=== PATIENT | female | born 1945 | race Caucasian/White ===

== ENCOUNTER 2020-11-06 09:07 | Outpatient (RCR) | payer MEDICARE, SELFPAY ==
--- NOTE | 2020-11-07 08:45 | PC.NURSE ---
Pt called out reporting she could not do the program due to being so overwhelmed from intake. Informed her we will send a list of therapists and clinics in the area to her address. Confirmed she has crisis' information.
== END 2020-11-06 23:55 | disposition home or self-care (01) ==
LOC: HO.PHPA 09:07
PROVIDERS: Visit Provider Psychiatry & Neurology Psychiatry
DX: F33.2 Major depressive disorder, recurrent severe without psychotic features (principal)
CPT/HCPCS: 90791

== ENCOUNTER 2023-07-01 11:01 | Outpatient (AMB) | payer MEDICARE, SELFPAY ==
--- NOTE | 2023-07-01 11:02 | A.OFFVIS_ITS ---
Intake Vital Signs 07/01/23 11:10 Height 5 ft 3.5 in Weight 250 lb BMI 43.6 BP 150/60 H Blood Pressure Location Lt brachial Position Sitting Pulse 71 Pulse Source Pulse Oximeter Pulse Oximetry (%) 96 Oxygen Delivery Method Room Air Intake Visit Reasons: WIP-Kchksys-yumqbvick Intake Note: NPV for tremors Senior Staff Consultant Required: No Allergies amoxicillin Allergy (Severe, Verified 07/01/23 11:03) throat closure HPI HPI Comments History of Present Illness Details 78 y/o female patient presents for new i n-person visit for dizziness, and tremor. Pt reports dizziness and unsteadiness, loss of balance and mild hand tremor. She feels more dizzy when she bend over and easy to loss balance. She falls more frequently lately. It is not spinning sensation. She start using walking stick and walker. Pt reports right ear pounding, pressure and hearing loss. It started about 4-5 years ago. She was evaluated by ENT at that time, but not followed after the one time visit. Pt can't remember what was the diagnose but was told that continue to monitor. Pt also had a vestibular therapy but it did not help. She feels nauseous and has difficulty driving. She is very sensitive for weather, and she feels more dizzy and head pressure when rainy day. She has hx of OG and on CPAP. She reports vivid dream. No REM behavior reported. Pt also had a hip replacement 4 years ago. And has gained 15 lb over the last 3 years ago. She reports constant frontal head pressure and heaviness. She has mild hand tremor, mostly left hand when she carries her plate. Her fine motor function decreased, having difficulty opening the plastic bag. Her hand writing getting smaller. Jose constipation. Pt reports depression, and sees therapist weekly. [facility] Surgical History (Updated 07/01/23 @ 11:08 by Vannessa Lagos CMA) History of hip replacement Social History (Updated 07/01/23 @ 11:10 by Vannessa Lagos CMA) Household Members: None Alcohol intake: never Patient Tobacco Use Status: Current everyday Tobacco user Review of Systems Const All systems reviewed & are unremarkable except as noted in HPI and below Physical Exam Vital Signs: Last Vital Signs Pulse 71 07/01/23 11:10 BP 150/60 H 07/01/23 11:10 Pulse Ox 96 07/01/23 11:10 Oxygen Delivery Method Room Air 07/01/23 11:10 BMI result Body Mass Index 43.6 Const General: cooperative Nutritional Appearance: obese Orientation/consciousness: patient oriented x3 Neck Neck: Yes full ROM and Yes supple Resp Effort & Inspection: normal respiratory effort and able to speak in complete sentences Neuro General: patient oriented x3 Cranial nerves: Yes Bilaterally intact EOM present, Yes Normal facial strength present, Yes Midline tongue present, Yes Symmetric palate elevation present, Yes Ability to bilaterally rotate head present and Yes Ability to bilaterally elevate shoulders present Cognition (Neuro): normal cognition Gait exam (Neuro): Antalgic gait present Motor exam (neuro): 5/5 motor strength present throughout, Pronator motor function not present, Normal motor muscle tone present throughout and Tremors during motor activity present (minimal left hand tremor, posturing and action. ) Psych Appearance: grossly normal Mental Status: mental status grossly normal Affect: normal affect Attitude: cooperative Assessment & Plan Assessment & Plan (1) Loss of balance: Code(s): R26.89 - Other abnormalities of gait and mobility (2) Hearing loss associated with syndrome of right ear: Code(s): H91.91 - Unspecified hearing loss, right ear (3) Pressure in head: Code(s): R51.9 - Headache, unspecified (4) Tremor of left hand: Code(s): R25.1 - Tremor, unspecified Plan Refer patient to physical therapy for gait training and bilateral legs strength. Refer patient to occupational therapy for hand tremor and weakness. Advised patient to undergo brain MRI to assess headache, pressure and loss of balance. Continue to follow up with ENT. Orders: Orders PT Evaluation and Treatment 12 Weeks R26.89 - Other abnormalities of gait and mobility OT Evaluation and Treatment 12 Weeks R25.1 - Tremor, unspecified MR head/brain wo con 07/01/23 H91.91 - Unspecified hearing loss, right ear, R 25.1 - Tremor, unspecified, R26.89 - Other abnormalities of gait and mobility, R51.9 - Headache, unspecified Coding Level of Care Code New Pt Level 4 (75249) Diagnoses Loss of balance R26.89 Hearing loss associated with syndrome of right ear H91.91 Pressure in head R51.9 Tremor of left hand R25.1
[2023-07-01 11:10] VITALS: BP 150/60; PULSE 71; O2SAT 96; BMI 43.6
== END 2023-07-01 12:09 | disposition home or self-care (01) ==
PROVIDERS: Visit Provider Nurse Practitioner Family
DX: R26.89 Other abnormalities of gait and mobility (principal); H91.91 Unspecified hearing loss, right ear; R51.9 Headache, unspecified; R25.1 Tremor, unspecified
CPT/HCPCS: 99204

== ENCOUNTER → 2023-07-01 11:01 | Outpatient (BNVA) | payer MEDICARE, SELFPAY | PROVIDERS: Visit Provider Nurse Practitioner Family ==

== ENCOUNTER 2023-08-13 11:09 | Outpatient (REF) | payer MEDICARE, SELFPAY ==
--- NOTE | ~2023-08-13 | MR_ITS ---
MRI OF THE BRAIN WITHOUT IV CONTRAST INDICATION: Head pressure and tremor. COMPARISON: None available. TECHNIQUE: Multiplanar multisequence MR imaging of the brain was obtained without IV contrast. FINDINGS: There is no hydrocephalus, extra-axial surface collection, or herniation. There is mild chronic microangiopathy. The major flow voids at the skull base are preserved. There is no acute infarct on diffusion-weighted imaging. There is no intracranial hemorrhage on the gradient recalled echo acquisition. Punctate focus of chronic hemosiderin staining within the left temporal lobe. Partially empty sella. The cerebellar tonsils are normally positioned. The cerebellum and brainstem are normal. The craniocervical junction is normal. Osseous marrow signal intensity is homogenous. The visualized soft tissues are unremarkable. MR/MR head/brain wo con IMPRESSION: - No acute intracranial findings. - There is mild chronic microangiopathy. - Partially empty sella.
== END 2023-08-13 11:10 | disposition home or self-care (01) ==
LOC: HO.MRI 11:09
PROVIDERS: PCP Nurse Practitioner Adult Health; Visit Provider Nurse Practitioner Family
DX: H91.91 Unspecified hearing loss, right ear (principal); R51.9 Headache, unspecified; R25.1 Tremor, unspecified; R26.89 Other abnormalities of gait and mobility
CPT/HCPCS: 70551

== ENCOUNTER 2024-12-20 11:48 | Outpatient (AMB) | payer MEDICARE, SELFPAY ==
--- NOTE | 2024-12-20 11:57 | MHC.OFFVIS ---
Vital Signs 12/20/24 12:00 Height 5 ft 3 in Weight 258 lb BMI 45.7 BP 178/84 H Blood Pressure Location Lt brachial Position Sitting Respiration 16 Pulse 102 H Pulse Source Pulse Oximeter Pulse Oximetry (%) 91 L Oxygen Delivery Method Room Air Intake Visit Reasons: Chronic low back pain Instrumental Musician Required: No Allergies amoxicillin Allergy (Severe, Verified 12/20/24 12:02) throat closure Sulfa (Sulfonamide Antibiotics) Adverse Reaction (Unknown, Verified 12/20/24 12:02) Unknown Medication List - Last Reconciled 12/20/24 by Kiara Ceballos LPN glipizide ER 15 mg PO DAILY levothyroxine 125 mcg PO DAILY methylphenidate HCl 5 mg PO BID methylphenidate HCl 10 mg PO BID semaglutide (Ozempic) mg subcut tramadol 50 mg PO BID PRN venlafaxine ER 300 mg PO DAILY HPI HPI Chronic low back pain: Details: History of Present Illness The patient is a 79-year-old female presenting with chronic low back pain and right knee pain. Her condition dates back several years, with significant exacerbation following a fall on September 08, 2024. She reports being overweight as a contributing factor to her pain. The lower back pain is described as aching and stabbing and is notably severe in the right gluteal area. The pain around the right knee is a burning sensation, predominantly around the patella, and remains persistent throughout the day at 7 to 8 out of 10 in severity. Factors that provide relief include rest and naps, while weather changes and prolonged standing worsen her symptoms. Despite her persistent pain, she manages daily activities with difficulty and uses a walker for additional support. Pharmacologic interventions such as tramadol, ibuprofen, and topical applications provide some relief but have not resolved her symptoms. She has not had any recent imaging studies or engaged in physical therapy to address her pain. Due to her limitations and impact on daily living, she is open to an MRI and further interventions if necessary. Pain Description - Location: Lower back and right knee - Onset: Chronic for many years, exacerbated by a fall on September 08, 2024 - Quality: Aching and stabbing in the lower back; burning in the right knee around the patella - Severity: 7 to 8 out of 10 throughout the day - Exacerbating Factors: Weather changes, physical activity, prolonged standing and walking - Relieving Factors: Rest and naps - Interference with Activities: Significant difficulty with household tasks, shopping, sleeping; relies on a walker or shopping cart for support Physical Exam - Appears afebrile. - Alert and oriented. - Mood and affect appropriate. - Follows and participates in conversation appropriately. - Respiratory effort is unlabored. - Able to transition from sit to stand unassisted. - Ambulates with bilaterally normal heel strike and toe off while leaning on a walker. Pain Management - Affect: Pain significantly impacts daily activities and sleep quality. - Analgesia: Current regimen includes tramadol 15 mg on occasion, ibuprofen, hot packs, and lidocaine patches with moderate relief. Pain severity reported as 7 to 8 out of 10. - Adverse Effects: None reported from current pain medication use. - Activities of Daily Living: Difficulty performing senior electrical controls engineer, unable to stand for long periods, reduced mobility, and reliance on a walker. - Aberrant Drug Related Behaviors: No aberrant behaviors noted. [facility] Surgical History (Updated 07/01/23 @ 11:08 by Vannessa Lagos CMA) History of hip replacement Social History (Updated 07/01/23 @ 11:10 by Vannessa Lagos CMA) Household Members: None Alcohol intake: never Patient Tobacco Use Status: Current everyday Tobacco user Physical Exam Vital Signs: Last Vital Signs Pulse 102 H 12/20/24 12:00 Resp 16 12/20/24 12:00 BP 178/84 H 12/20/24 12:00 Pulse Ox 91 L 12/20/24 12:00 Oxygen Delivery Method Room Air 12/20/24 12:00 BMI result Body Mass Index 45.7 Assessment & Plan Assessment & Plan (1) Spinal stenosis, lumbar region with neurogenic claudication: Code(s): M48.062 - Spinal stenosis, lumbar region with neurogenic claudication Category: Medical Plan Plan I will order an MRI of the patient's lumbar spine to investigate potential contributing factors to her chronic low back pain, such as spinal stenosis. Depending on the results, we will discuss the feasibility of surgical options at the next appointment. I recommend the patient start physical therapy to improve functionality and manage pain. An interest in pain-relieving injections was noted and to be discussed post-imaging if indicated. I advised the patient to schedule a follow-up appointment after the MRI to determine the next steps in her care. Weight management continues to be an ongoing consideration to alleviate pressure on her joints. Patient was informed and verbally consented to the use of an ambient scribe for clinic note documentation during this visit. Discussion Notes I discussed with the patient the importance of obtaining an MRI to gain insight into her chronic low back pain, especially considering the history of falls and potential spinal issues. I suggested that surgical intervention might be contemplated based on the MRI findings, particularly if severe spinal stenosis is present. The patient expressed openness to explore injection therapies as an alternative. I explained the benefits and potential risks of each approach, including the non-invasive nature of injections versus possible surgical interventions. We discussed the importance of physical therapy in managing her condition and enhancing mobility, and she is amenable to this plan. A follow-up visit after obtaining the MRI will provide more information for tailored treatment planning. Patient Instructions - Schedule and complete the lumbar spine MRI as soon as possible. - Begin physical therapy to help improve function and manage pain. - Use prescribed medications as needed for pain management. - Await a phone call from the radiology department to schedule your MRI. - Once the MRI is scheduled, call my office to set up a follow-up appointment approximately one week after the MRI is performed. - Monitor any changes in pain severity and inform the office if pain becomes unmanageable. - Continue efforts at weight management to help reduce joint stress. - Contact my office with any questions or new symptoms. Orders: Orders MR lumbar spine wo con Today M48.062 - Spinal stenosis, lumbar region with neurogenic claudication Coding Level of Care Code New Pt Level 4 (94125) Diagnoses Spinal stenosis, lumbar region with neurogenic claudication M48.062
[2024-12-20 12:00] VITALS: BP 178/84; PULSE 102; RESP 16; O2SAT 91; BMI 45.7
--- OUTSIDE RECORDS SUMMARY | 2024-12-20 13:50 | XMS_ITS | Encounter Summary ---
Author Organization 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 Not on mckenzie e 01/04/2023 Are you concerned about learning? Not on file 01/04/2023 No 01/04/2023 No 01/04/2023 Digital Access Answer Date Recorded No 02/02/2023 No 02/02/2023 Reliable internet access at home? Not on file 02/02/2023 Device with a working camera? Not on file Sex and Gender Information Value Date Recorded Sex Assigned at Female 09/01/2019 11:52 AM EST Gender Identity Female 09/01/2019 11:52 AM EST Sexual Orientation Not on file documented as of this encounter Plan of Treatment Not on file documented as of this encounter Visit Diagnoses Diagnosis Sensorineural hearing loss, unilateral, right ear, with restricted hearing on the contralateral side- Primary Otalgia of right ear Arthralgia of right temporomandibular joint documented in this encounter Care Teams Machine Setup Operator Relationship Specialty Start Date End Date Adriana Weeks NP [address] [place] [address] PCP - General Family Medicine 10/13/17 documented as of this encounter Additional Source Comments The information contained in this document represents components of the legal health record. It is not the complete legal health record.[facility]
--- OUTSIDE RECORDS SUMMARY | 2024-12-20 13:50 | XMS_ITS | Encounter Summary ---
Author Organization [facility] Address [address] [place] [address] Phone Care Team Providers Care Certified Shorthand Reporter Name Role Phone Adriana Weeks NP Primary Care Provider + [phone] Reason for Referral * Physical Therapy (Routine) - Closed Specialty Diagnoses / Procedures Referred By Charanjit hooker Referred To Contact Physical Therapy Diagnoses Nocturia Cali Sims MD [address] [place] [address], [address] [place] [id number] Email: [facility] Parent [address] [place] [address] Referral ID Status Reason Start Date Expiration Date Visits Re quested Visits Authorized [id number] Closed 09/24/2018 09/07/2019 99 99 Encounter Details Date Type Department Care Team (Latest Contact Info) Description 09/24/2018 Transcribe Orders [facility] [address] [place] [address] Cali Sims MD [address] [place] [address], [address] [place] [address] [phone] [email or web address] Nocturia (Primary Dx) Social History Tobacco Use Types Packs/Day Years Used Date Smoking Tobacco: Never Assessed Sex and Gender Information Value Date Recorded Sex Assigned at Female 09/01/2019 11:52 AM EST Gender Identity Female 09/01/2019 11:52 AM EST Sexual Orientation Not on file documented as of this encounter Plan of Treatment Scheduled Referrals Name Type Priority Associated Diagnoses Order Schedule Ambulatory referral to [facility] Physical Therapy Outpatient Referral Routine Nocturia Ordered: 09/24/2018 documented as of this encounter Visit Diagnoses Diagnosis Nocturia- Primary documented in this encounter Additional Health Concerns Infection Onset Date Last Indicated Resolved Time CoV-Risk 09/18/2020 09/18/2020 09/28/2020 1:24 AM EST documented as of this encounter Care Teams Certified Shorthand Reporter Relationship Specialty Start Date End Date Adriana Weeks NP [address] [place] [address] [place] [address] PCP - General Family Medicine 10/13/17 documented as of this encounter Additional Source Comments The information contained in this document represents components of the legal health record. It is not the complete legal health record.[facility]
--- OUTSIDE RECORDS SUMMARY | 2024-12-20 13:50 | XMS_ITS ---
Author Organization [facility] Care Team Providers Care Clinical Assoc Name Role Phone , Jeremiah Unavailable Unavailable Yair Mcclellan Unavailable Unavailable Maryt, Sukhdev Unavailable Unavailable Allergies and adverse reactions Code CodeSystem Substance Reaction Severity StartDate Concern Status 156443814 SNOMED CT Sulfa Antibiotics Unknown 12/21/2018 active Lactose Intolerant Unknown 12/21/2018 ac tive 723 RXNORM Amoxicillin Unknown 12/21/2018 active Care Team Name Role Address Phone Organization Dates Jeremiah Maryt PCP [address] [place] [address] (Office): [facility] 12/21/2018 - 01/05/2019 Yair Mcclellan Attending Physician [address] [place] [address] (Office): [facility] 12/21/2018 - 01/05/2019 Sukhdev Darling Attending Physician [address] [place] [address] (Office): [facility] 12/21/2018 - 01/05/2019 Mental Status Section Date Assessment Total Score Description 01/05/2019 BIMS 15 cognitively int act CAM 0 No delirium ind icated PHQ-9 00 01/02/2019 BIMS 14 cognitively int act CAM 0 No delirium ind icated PHQ-9 00 Problems Problem # Description Date of onset Resolved Date Code CodeSystem Concern Status 1 AFTERCARE FOLLOWING JOINT REPLACEMENT SURGERY 12/21/[address] active 2 ATTENTION-DEFICIT HYPERACTIVITY DISORDER, COMBINED TYPE 12/21/[address] active 3 BIPOLAR DISORDER, UNSPECIFIED 12/21/[address] active 4 ENCOUNTER FOR OTHER ORTHOPEDIC AFTERCARE 12/21/[address] active 5 HYPOTHYROIDISM, UNSPECIFIED 12/21/[address] active 6 IRON DEFICIENCY ANEMIA, UNSPECIFIED 12/21/[address] active 7 MUSCLE WEAKNESS (GENERALIZED) 12/21/[address] active 8 OBSTRUCTIVE SLEEP APNEA (ADULT) (PEDIATRIC) 12/21/[address] active 9 PAIN IN LEFT HIP 12/21/[address] a ctive 10 PRESENCE OF LEFT ARTIFICIAL HIP JOINT 12/21/[address] active 11 UNILATERAL PRIMARY OSTEOARTHRITIS, LEFT HIP 12/21/[address] active Reason for Referral No Reasons for Referral Entered Social History Social History Observation Description Start Date End Date Code Code System Current Smoking Status Tobacco smoking consumption unknown 680058116 SNOMED CT Sex Assigned At Female 1945 05754-7 [facility] Vital Signs Code Code System Vitals Name Values and Units Timing Information 29523-7 [facility] Pain Level Value=0.0 01/05/2019 9279-1 LOINC Respiratory Rate Value=18.0 Units=/m in 01/04/2019 8462-4 LOINC Blood Pressure-Diastolic Value=67 Un its=mmHg 01/04/2019 8480-6 LOINC Blood Pressure-Systolic Grtuz=127 Un its=mmHg 01/04/2019 8310-5 LOINC Body Temperature Value=98.1 Units=?? F 01/04/2019 8867-4 LOINC Heart rate Value=89.0 Units=/min 62978-7 LOINC O2 % BldC Oximetry Value=98.0 Units= % 01/04/2019 43836-4 LOINC Weight Nsytu=048.4 Units=Lbs 8302-2 LOINC Height Value=64.0 Units=Inches 12/22/2018
--- OUTSIDE RECORDS SUMMARY | 2024-12-20 13:50 | XMS_ITS | Encounter Summary ---
Author Organization [facility] Address [address] [facility] [address] [place] [address] Phone Care Team Providers Care Ophthalmic Lens Inspector Name Role Phone Adriana Weeks ACID CONDITIONING WORKER Primary Care Provider Encounter Details Date Type Department Care Team (Late st Contact Info) Description 04/28/2018 Ancillary Orders Virtual Department [address] [place] [address] You Pierre, DO [address] [place] [address] [email or web address] Pain in left hip Social History Tobacco Use Types Packs/Day Years Used Date Smoking Tobacco: Never Assessed Sex and Gender Information Value Date Recorded Sex Assigned at Female 09/01/2019 11:52 AM EST Gender Identity Female 09/01/2019 11:52 AM EST Sexual Orientation Not on file documented as of this encounter Plan of Treatment Not on file documented as of this encounter Visit Diagnoses Diagnosis Pain in left hip documented in this encounter Additional Health Concerns Infection Onset Date Last Indicated Resolved Time CoV-Risk 09/18/2020 09/18/2020 09/28/2020 1:24 AM EST documented as of this encounter Care Teams Ophthalmic Lens Inspector Relationship Specialty Start Date End Date Adriana Weeks NP [address] [place] [address] PCP - General Family Medicine 10/13/17 documented as of this encounter Additional Source Comments The information contained in this document represents components of the legal health record. It is not the complete legal health record.[facility]
--- OUTSIDE RECORDS SUMMARY | 2024-12-20 13:51 | XMS_ITS | Encounter Summary ---
Author Organization [facility] Address [facility] [employer] [address] [address] Phone Care Team Providers Care Cigarette Filter Inspector Name Role Phone Adriana Weeks NP Primary Care Provider [phone] Encounter Details Date Type Department Care Team (Latest Contact Info) Description 09/18/2020 Transcribe Orders Virtual Department [address] [place] [address] Cari Cortés NP [address] [place] [address] [email or web address] Fever, unspecified fever cause (Primary Dx); Cough; Stuffy and runny nose; Nonintractable headache, unspecified chronicity pattern, unspecified headache type Social History Tobacco Use Types Packs/Day Years Used Date Smoking Tobacco: Never Assessed Sex and Gender Information Value Date Recorded Sex Assigned at Female 09/01/2019 11:52 AM EST Gender Identity Female 09/01/2019 11:52 AM EST Sexual Orientation Not on file documented as of this encounter Plan of Treatment Not on file documented as of this encounter Results * COVID-19 PCR Order (09/18/2020 11:05 AM EST) COVID Testing Status Specimen received in analyzing lab. [facility] Symptomatic? YES [facility] Other 09/18/2020 11:0 5 AM EST 09/18/2020 12:53 PM EST Provider Not In System PhD BODY FLUIDS A ND STOOLS ORDERABLES Performing Organization Address City/State/[facility] Co de Phone Number [facility] [address] [place] [address] [facility] [address] [place] [address] documented in this encounter Visit Diagnoses Diagnosis Fever, unspecified fever cause- Primary Cough Stuffy and runny nose Other diseases of nasal cavity and sinuses Nonintractable headache, unspecified chronicity pattern, unspecified headache type documented in this encounter Additional Health Concerns Infection Onset Date Last Indicated Resolved Time CoV-Risk 09/18/2020 09/18/2020 09/28/2020 1:2 4 AM EST documented as of this encounter Care Teams Cigarette Filter Inspector Relationship Specialty Start Date End Date Adriana Weeks NP [address] [place] [address] [place] [address] PCP - General Family Medicine 10/13/17 documented as of this encounter Additional Source Comments The information contained in this document represents components of the legal health record. It is not the complete legal health record.[facility]
--- OUTSIDE RECORDS SUMMARY | 2024-12-20 13:51 | XMS_ITS | Encounter Summary ---
Author Organization [facility] Address [address] [facility] [address] [place] [address] Phone Care Team Providers Care Game Engineer Name Role Phone Adriana Weeks TANK CAR LOADER Primary Care Provider [phone] Encounter Details Date Type Department Care Team (Late st Contact Info) Description 01/02/2021 Procedure Pass [facility] Endoscopy Admitting Dept Virtual Department [address] [place] [address] Social History Tobacco Use Types Packs/Day Years Used Date Smoking Tobacco: Never Assessed Sex and Gender Information Value Date Recorded Sex Assigned at Female 09/01/2019 11:52 AM EST Gender Identity Female 09/01/2019 11:52 AM EST Sexual Orientation Not on file documented as of this encounter Plan of Treatment Not on file documented as of this encounter Visit Diagnoses Not on filedocumented in this encounter Care Teams Game Engineer Relationship Specialty Start Date End Date Adriana Weeks, TANK CAR LOADER [address] [place] [address] PCP - General Family Medicine 10/13/17 documented as of this encounter Additional Source Comments The information contained in this document represents components of the legal health record. It is not the complete legal health record.[facility]
--- OUTSIDE RECORDS SUMMARY | 2024-12-20 13:51 | XMS_ITS | Clinical Summary ---
Author Organization [facility] Address [address] [place] [address] Phone Care Team Providers Care Divider Operator Name Role Phone Adriana Weeks NP Primary Care Provider [phone] Allergies Active Allergy Reactions Criticality Noted Date Comments Amoxicillin Hives 01/16/2018 Sulfa (Sulfonamide Antibiotics) Hives 01/06 Medications Medication Sig Dispensed Refills Start Date End Date Status PROAIR HFA 90 mcg/actuation inhaler INHALE 2 PUFF(S) EVERY 4 HOURS BY INHALATION ROUTE FOR 30 DAYS. 11 11/04/2017 Active levothyroxine (SYNTHROID, LEVOTHROID) 112 MCG tablet Take 125 mcg by mouth daily. 0 10/31/2017 Active lithium carbonate 300 MG capsule TAKE 1 CAPSULE(S) EVERY DAY BY ORAL ROUTE. 0 10/31/2017 Active methylphenidate HCl (RITALIN) 10 MG tablet Take 15 mg by mouth. 0 01/04/2018 Acti ve venlafaxine (EFFEXOR-XR) 150 MG 24 hr capsule Take 150 mg by mouth daily. Take 2 caps daily. 1 10/31/2017 Active venlafaxine (EFFEXOR) 37.5 MG tablet Take 37.5 mg by mouth daily. Active glipiZIDE (GLUCOTROL XL) 5 MG 24 hr tablet Take 5 mg by mouth. Take 2 tabs in the morning and one tab at noon with meals. 09/09/2023 Active cholecalciferol, vitamin D3, (VITAMIN D3 ORAL) Take 3,000 Units by mouth daily. Active MULTIVITAMIN ORAL Take by mouth daily. Active pioglitazone (ACTOS) 15 MG tabletIndications: Type 2 diabetes mellitus with hyperglycemia, with long-term current use of insulin Take 1 tablet (15 mg total) by mouth daily. 90 tablet 1 10/08/2023 Active blood-glucose meter,continuous (DEXCOM G7 GUM DIPPER) MiscIndications:Ty pe 2 diabetes mellitus with hyperglycemia, with long-term current use of insulin by Miscellaneous route as needed. 1 each 10/08/2023 Active blood-glucose sensor (DEXCOM G7 SENSOR) DeviIndications:Ty pe 2 diabetes mellitus with hyperglycemia, with long-term current use of insulin 1 Application by Miscellaneous route Every 10 Days. 3 each 11 10/08/2023 Active BASAGLAR KWIKPEN U-100 INSULIN 100 unit/mL (3 mL) InPn injection penIndications:Typ e 2 diabetes mellitus with hyperglycemia, with long-term current use of insulin Inject 30 Units under the skin nightly at bedtime. 30 mL 1 12/25/2023 Active Active Problems Problem Noted Date Diagnosed Date Type 2 diabetes mellitus wit h hyperglycemia, with long-term current use of insulin 10/08/2023 Assessment & Plan (10/08/2023 12:19 PM EST): Uncontrolled. Hemoglobin A1c reported over 10%. She has elevated fasting glucose and occasional postprandial glucose levels. She should increase the Lantus to 30 units. She will benefit from GLP-1 agonist for weight loss but these medications may not be covered or may be more expensive. I will refer the patient to prescribe a GLP-1 agonist and see if it is doable. He states that this was considered 5 years ago and it was expensive. The cost may have gone down but she is concerned about the adverse effects of the medication. So I propose using pioglitazone which is an insulin mobile home servicer and she has cardiovascular benefits and also cholesterol benefits. She can start with 15 mg daily. But she is also on glipizide 3 tablets a day and she may need to decrease this at least by 1 tablet for now especially since we are increasing the Lantus. So I asked her to decrease the glipizide from 15 mg to 10 mg. I asked her to monitor her glucose levels twice a day always a fasting glucose alternating between lunch, dinner, and bedtime. I will need to obtain a lipid panel repeat the urine microalbumin obtain a comprehensive CBC. As for the blood pressure she states that it is controlled at home but I did inform her that an DO inhibitor or angiotensin receptor rosa will still be beneficial for renal protection because of the microalbuminuria. We can discuss this further on the follow-up visit in approximately 3 months. Type 2 diabetes mellitus wit h diabetic polyneuropathy, with long-term current use of insulin 10/08/2023 Type 2 diabetes mellitus wit h microalbuminuria, with long-term current use of insulin 08/10/2021 Immunizations Name Administration Dates Next Due COVID-19 (Pre-06/30) Moderna Vaccine, mRNA, PF 0 10/31/2020 Influenza High-Dose Trivalent Preservative Free IM 08/02/2019 Influenza Quadrivalent Adjuvanted Preservative F ree IM 06/19/2020 Influenza, Unspecified Formulation 07/01/2008, Pneumococcal conjugate PCV13 01/25/2019 Td, unspecified formulation 09/26/2004 Family History Medical History Relation Comments Stroke Father Diabetes Mother Hyperlipidemia Mother Hypertension Mother Relation Status Comments Father Mother Social History Tobacco Use Types Packs/Day Years [...] AM EST Sexual Orientation Not on file Last Filed Vital Signs Vital Sign Reading Time Taken Comments Blood Pressure 152/76 10/08/2023 11:38 AM EST Pulse 82 10/08/2023 11:38 AM EST Temperature 36.5 ??C (97.7 ??F) 10/08/2023 1 1:38 AM EST Respiratory Rate 16 06/01/2022 5:00 PM EDT Oxygen Saturation 96% 10/08/2023 11: 38 AM EST Inhaled Oxygen Concentration - - Weight 113.4 kg (250 lb) 10/08/2023 11: 38 AM EST pt reported. refused scale. Height 160.2 cm (5' 3.09 ) 10/08/2023 1 1:38 AM EST Body Mass Index 44.16 10/08/2023 11:38 AM EST Plan of Treatment Health Maintenance Due Date Last Done Comments HEMOGLOBIN A1C 1945 LITHIUM LEVEL 1945 TSH LEVEL 1945 DEPRESSION SCREENING 1957 SMOKING Hx and SMOKELESS TOBACCO SCREENING 1958 HEPATITIS C SCREENING 1963 LIPID PANEL 1963 ZOSTER VACCINES (1 of 2) 1995 OSTEOPOROSIS SCREENING INITIAL (ONE-TIME) 2010 RSV VACCINE (1 - 1-dose 75+ series) 02/13/2020 DIABETIC EYE EXAM 08/10/2021 URINE MICROALBUMIN/CREATININE RATIO 08/10/2021 CREATININE LEVEL 06/01/2023 06/01/2022 BLOOD PRESSURE 04/07/2024 10/08/2023 COVID-19 VACCINE ( season) 2024 07/25/2022, 01/22/2022, 07/09/2021, Additional history exists Adult Td,Tdap Booster 01/15/2028 01/14/2018, 005 PNEUMOCOCCAL VACCINES (50+ years) Completed 01/25/2019, 08/05/2012 HEPATITIS A VACCINES Aged Out No long er eligible based on patient's age to complete this topic HIB VACCINES Aged Out No longer eligi ble based on patient's age to complete this topic MENINGOCOCCAL VACCINES (ACWY) Aged Out No longer eligible based on patient's age to complete this topic Medical Devices Not on file Procedures Procedure Name Priority Date/Time Associated Diagnosis Comments BASIC METABOLIC PANEL STAT 06/01/2022 2:14 PM EDT from Last 3 Months or Most Recently Relevant to Health Maintenance Results * (ABNORMAL) Basic metabolic panel (06/01/2022 2:14 PM EDT) SODIUM 137 133 - 146 mmol/L [facility] CHLORIDE 100 96 - 108 mmol/L [facility] POTASSIUM 4.6 3.3 - 5.1 mmol/L [facility] CO2 22 21 - 35 mmol/L [facility] BUN 21(H) 6 - 19 mg/dL [facility] CREATININE 0.70 0.5 - 1.5 mg/dL [facility] GLUCOSE 179(H) 70 - 99 mg/dL [facility] CALCIUM 9.7 8.4 - 10.3 mg/dL [facility] EGFR 89 >59 mL/min/1.7 3m2 [facility] Comment:Estimated glomerular filtration rate calculated using the CKD-EPI refit equation. ANION GAP 20 10 - 20 mmol/L [facility] Blood 06/01/2022 2:14 PM EDT 06/01/2022 2:23 PM EDT Jose Carlos Houser MD LAB BLOOD ORDERABLES [facility] [address] [place] [address] from Last 3 Months or Most Recently Relevant to Health Maintenance Advance Directives For more information, please contact: [phone] (9AM - 5PM [facility], Friday-Friday) Documents on File Type Date Recorded Patient Contact Worker Lithography Expl raghu DUQUE 06/03/2022 5:00 PM Care Teams Divider Operator Relationship Specialty Start Date End Date Adriana Weeks NP [address] [place] [address] [place] [address] PCP - General Family Medicine 10/13/17 Additional Source Comments The information contained in this document represents components of the legal health record. It is not the complete legal health record.[facility]
== END 2024-12-20 12:25 | disposition home or self-care (01) ==
PROVIDERS: PCP Nurse Practitioner Adult Health; Visit Provider Internal Medicine
DX: M48.062 Spinal stenosis, lumbar region with neurogenic claudication (principal)
CPT/HCPCS: 99204

== ENCOUNTER → 2024-12-20 11:48 | Outpatient (BNVA) | payer MEDICARE, SELFPAY | PROVIDERS: PCP Nurse Practitioner Adult Health; Visit Provider Internal Medicine | DX: M48.062 Spinal stenosis, lumbar region with neurogenic claudication (principal) | CPT/HCPCS: 99202 ==

== ENCOUNTER 2024-12-27 10:24 | Outpatient (REF) | payer MEDICARE, SELFPAY ==
--- NOTE | ~2024-12-27 | MR_ITS ---
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 COMPARISON: None available. TECHNIQUE: MRI of the lumbar spine was obtained using routine sequences without contrast. FINDINGS: There is normal lumbar lordosis. The vertebral heights are normal. There is grade 1 retrolisthesis L1 over L2 and L2 over L3 and grade 1 anterolisthesis L4 over L5.. There is loss of disc height lower dorsal and anterior lumbar spine with disc desiccation changes. At T12-L1 disc level there is minimal bulge without spinal canal stenosis. The neural foramina are patent bilaterally. At L1-2 disc level there is grade 1 retrolisthesis with mild diffuse pseudo disc bulge with mild AP canal stenosis. There is bilateral moderate narrowing of neural foramina from underlying mild facet joint hypertrophy and bulge. At L2-3 disc level there is grade 1 retrolisthesis resulting in diffuse pseudodisc bulge and moderate to significant facet joint and ligament flavum hypertrophy. There is bilateral moderate narrowing of neural foramina. At L3-4 disc level there is severe spinal canal stenosis from combination of broad-based diffuse bulge and significant bilateral facet joint and ligamentum flavum hypertrophy. There is moderate bilateral narrowing of neural foramina. At L4-5 disc level there is severe spinal canal stenosis from combination of pseudodisc bulge secondary to anterolisthesis, significant facet joint and ligament flavum hypertrophy. There is bilateral mild to moderate narrowing of neural foramina. At L5-S1 disc level there is no evidence of disc bulge, herniation or spinal canal stenosis. There is moderate to significant bilateral facet joint and ligament flavum hypertrophy. There is mild narrowing of neural foramina. The bone marrow signal and intraspinal signal is normal. Conus medullaris terminates at T12-L1 disc level and appears normal in morphology. MR/MR lumbar spine wo con IMPRESSION: Multilevel degenerative disc degenerative changes with listhesis as described above. There is severe spinal canal stenosis at L4-5, L3-4 and moderate canal stenosis at at L2-3 and mild canal stenosis at L1-2 disc levels. There is bilateral narrowing of neural foramina as described above. There appears symmetrically narrowed. There is significant facet joint arthropathy at L3-4, L4-5 disc levels. Electronically signed by: Edwin Marcial MD 12/28/2024 07:51 AM EDT
--- OUTSIDE RECORDS SUMMARY | 2024-12-27 10:27 | XMS_ITS | Encounter Summary ---
Author Organization [facility] Address [address] [place] [address] Phone Care Team Providers Care Supervisor Personnel Clerks Name Role Phone Adriana Weeks NP Primary Care Provider + [phone] Reason for Referral * Physical Therapy (Routine) - Closed Specialty Diagnoses / Procedures Referred By Charanjit hooker Referred To Contact Physical Therapy Diagnoses Nocturia Cali Sims MD [address] [place] [address], [address] [place] [address] Email: [facility] Parent [address] [place] [address] Referral ID Status Reason Start Date Expiration Date Visits Re quested Visits Authorized [id number] Closed 09/24/2018 09/07/2019 99 99 Encounter Details Date Type Department Care Team (Latest Contact Info) Description 09/24/2018 Transcribe Orders [facility] [address] [place] [address] Cali Sims MD [address] [place] [address], [address] [place] [address] [phone] [email or web address] Nocturia (Primary Dx) Social History [...] Associated Diagnoses Order Schedule Ambulatory referral to [facility] Physical Therapy Outpatient Referral Routine Nocturia Ordered: 09/24/2018 documented as of this encounter Visit Diagnoses Diagnosis Nocturia- Primary documented in this encounter Additional Health Concerns Infection Onset Date Last Indicated Resolved Time CoV-Risk 09/18/2020 09/18/2020 09/28/2020 1:24 AM EST documented as of this encounter Care Teams Supervisor Personnel Clerks Relationship Specialty Start Date End Date Adriana Weeks NP [address] [place] [address] [place] [address] PCP - General Family Medicine 10/13/17 documented as of this encounter Additional Source Comments The information contained in this document represents components of the legal health record. It is not the complete legal health record.[facility]
--- OUTSIDE RECORDS SUMMARY | 2024-12-27 10:28 | XMS_ITS | Encounter Summary ---
Author Organization [facility] Address [address] [facility] [address] [place] [address] Phone Care Team Providers Care Grain And Yeast Plants Supervisor Name Role Phone Adriana Weeks NP Primary Care Provider [phone] Encounter Details Date Type Department Care Team (Latest Contact Info) Description 10/23/2023 Transcribe Orders Virtual Department [address] [place] [address] Rk Acosta MD [address] [place] [address] [address] [place] [address] [email or web address] Sensorineural hearing loss, unilateral, right ear, with [...] joint documented in this encounter Care Teams Grain And Yeast Plants Supervisor Relationship Specialty Start Date End Date Adriana Weeks NP [address] [place] [address] PCP - General Family Medicine 10/13/17 documented as of this encounter Additional Source Comments The information contained in this document represents components of the legal health record. It is not the complete legal health record.[facility]
--- OUTSIDE RECORDS SUMMARY | 2024-12-27 10:28 | XMS_ITS | Encounter Summary ---
Author Organization [facility] Address [address] [facility] [address] [place] [address] Phone Care Team Providers Care Receiving Worker Name Role Phone Adriana Weeks WOOD INSPECTOR Primary Care Provider [phone] Encounter Details Date Type Department Care Team (Late st Contact Info) Description 04/28/2018 Ancillary Orders Virtual Department [address] [place] [address] You Pierre, DO [address] [place] [address] [email or web address] Pain in left hip Social History Tobacco [...] documented as of this encounter Care Teams Receiving Worker Relationship Specialty Start Date End Date Adriana Weeks NP [address] [place] [address] PCP - General Family Medicine 10/13/17 documented as of this encounter Additional Source Comments The information contained in this document represents components of the legal health record. It is not the complete legal health record.[facility]
--- OUTSIDE RECORDS SUMMARY | 2024-12-27 10:28 | XMS_ITS | Clinical Summary ---
Author Organization [facility] Address [address] [place] [address] Phone Care Team Providers Care Sap Portal Consultant Name Role Phone Adriana Weeks NP Primary Care Provider [phone] Allergies Active Allergy Reactions Criticality Noted Date [...] 1 10/08/2023 Active blood-glucose meter,continuous (DEXCOM G7 MACHINE ASSEMBLER) MiscIndications:Ty pe 2 diabetes mellitus with hyperglycemia, [...] propose using pioglitazone which is an insulin database administration manager and she has cardiovascular benefits and also [...] SODIUM 137 133 - 146 mmol/L [facility] CHLORIDE 100 96 - 108 mmol/L [facility] POTASSIUM 4.6 3.3 - 5.1 mmol/L [facility] CO2 22 21 - 35 mmol/L [facility] BUN 21(H) 6 - 19 mg/dL [facility] CREATININE 0.70 0.5 - 1.5 mg/dL [facility] GLUCOSE 179(H) 70 - 99 mg/dL [facility] CALCIUM 9.7 8.4 - 10.3 mg/dL [facility] EGFR 89 >59 mL/min/1.7 3m2 [facility] Comment:Estimated glomerular filtration rate calculated using the CKD-EPI refit equation. ANION GAP 20 10 - 20 mmol/L [facility] Blood 06/01/2022 2:14 PM EDT 06/01/2022 2:23 PM EDT Jose Carlos Houser MD LAB BLOOD ORDERABLES [facility] [address] [place] [address] from Last 3 Months or Most Recently Relevant to Health Maintenance Advance Directives For more information, please contact: [phone] (9AM - 5PM [facility], Friday-Friday) Documents on File Type Date Recorded Patient Assembler Lay Ups Expl raghu DUQUE 06/03/2022 5:00 PM Care Teams Sap Portal Consultant Relationship Specialty Start Date End Date Adriana Weeks NP [address] [place] [address] [place] [address] PCP - General Family Medicine 10/13/17 Additional Source Comments The information contained in this document represents components of the legal health record. It is not the complete legal health record.[facility]
--- OUTSIDE RECORDS SUMMARY | 2024-12-27 10:28 | XMS_ITS | Encounter Summary ---
Author Organization [facility] Address [facility] [employer] [address] [address] Phone Care Team Providers Care Inspector Of Dredging Name Role Phone Adriana Weeks NP Primary Care Provider [phone] Encounter Details Date Type Department Care Team (Latest Contact Info) Description 09/18/2020 Transcribe Orders Virtual Department [address] [place] [address] Cari Cortés NP [address] [place] [address] [email or web address] Fever, unspecified fever cause (Primary Dx); Cough; [...] Testing Status Specimen received in analyzing lab. [facility] Symptomatic? YES [facility] Other 09/18/2020 11:0 5 AM EST 09/18/2020 12:53 PM EST Provider Not In System PhD BODY FLUIDS A ND STOOLS ORDERABLES Performing Organization Address City/State/[facility] Co de Phone Number [facility] [address] [place] [address] [facility] [address] [place] [address] documented in this encounter Visit Diagnoses Diagnosis Fever, unspecified fever cause- Primary Cough Stuffy and runny nose Other diseases of nasal cavity and sinuses Nonintractable headache, unspecified chronicity pattern, unspecified headache type documented in this encounter Additional Health Concerns Infection Onset Date Last Indicated Resolved Time CoV-Risk 09/18/2020 09/18/2020 09/28/2020 1:2 4 AM EST documented as of this encounter Care Teams Inspector Of Dredging Relationship Specialty Start Date End Date Adriana Weeks NP [address] [place] [address] [place] [address] PCP - General Family Medicine 10/13/17 documented as of this encounter Additional Source Comments The information contained in this document represents components of the legal health record. It is not the complete legal health record.[facility]
--- OUTSIDE RECORDS SUMMARY | 2024-12-27 10:28 | XMS_ITS | Encounter Summary ---
Author Organization [facility] Address [address] [facility] [address] [place] [address] Phone Care Team Providers Care Recruitment Consultant Name Role Phone Adriana Weeks EMERGENCY VEHICLE TECHNICIAN Primary Care Provider [phone] Encounter Details Date Type Department Care Team (Late st Contact Info) Description 01/02/2021 Procedure Pass [facility] Endoscopy Admitting Dept Virtual Department [address] [place] [address] Social History Tobacco Use Types Packs/Day Years [...] on filedocumented in this encounter Care Teams Recruitment Consultant Relationship Specialty Start Date End Date Adriana Weeks, EMERGENCY VEHICLE TECHNICIAN [address] [place] [address] PCP - General Family Medicine 10/13/17 documented as of this encounter Additional Source Comments The information contained in this document represents components of the legal health record. It is not the complete legal health record.[facility]
== END 2024-12-27 10:25 | disposition home or self-care (01) ==
LOC: HO.MRI 10:24
PROVIDERS: PCP Nurse Practitioner Adult Health; Visit Provider Internal Medicine
DX: M48.062 Spinal stenosis, lumbar region with neurogenic claudication (principal)
CPT/HCPCS: 72148

== ENCOUNTER → 2024-12-27 10:30 | Outpatient (BNV) | payer MEDICARE, SELFPAY | PROVIDERS: PCP Nurse Practitioner Adult Health; Visit Provider Radiology Diagnostic Radiology | DX: M43.19 Spondylolisthesis, multiple sites in spine (principal); M48.061 Spinal stenosis, lumbar region without neurogenic claudication; M99.63 Osseous and subluxation stenosis of intervertebral foramina of lumbar region | CPT/HCPCS: 72148 ==

== ENCOUNTER 2025-05-30 12:29 | Outpatient (AMB) | payer MEDICARE, SELFPAY ==
--- NOTE | 2025-05-30 12:31 | A.OFFVIS_ITS ---
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 She reports that the pain is primarily located in the lower back, especially when standing for activities such as doing the dishes, which causes significant discomfort and necessitates sitting down. The patient has adapted her activities, such as vacuuming while sitting and using a walker to alleviate back pain. She has experienced falls, with the most recent occurring in September, and reports balance issues when reaching for objects. Despite these challenges, she maintains some level of physical activity, walking her dog with a walker for short distances several times a week. The patient has a history of obesity and diabetes mellitus, which complicates her condition and limits her treatment options. She has been attempting to lose weight, having lost approximately 5 pounds in the last month by eating less and monitoring her weight closely. Pain Description - Onset and Timing: Pain is chronic and exacerbated by standing activities such as doing dishes. - Quality and Character: Pain is severe enough to take her breath away, necessitating sitting down. - Primary Location: Lower back. - Exacerbating Factors: Standing for prolonged periods, reaching for objects. - Relieving Factors: Sitting down, using a walker. - Interference with Activities: Affects ability to perform technologies division chair and requires adaptation of activities such as vacuuming. Physical Exam - Appears afebrile. - Alert and oriented. - Mood and affect appropriate. - Follows and participates in conversation appropriately. - Respiratory effort is unlabored. Results - MRI: Revealed significant lumbar spinal stenosis L2/3, L3/4, L4/5 with ligamentum flavum hypertrophy. Pain Management - Affect: Pain impacts daily activities and quality of life. - Analgesia: Current pain level is high, with a goal to reduce it to a more manageable level. - Activities of Daily Living: Pain interferes with technologies division chair and mobility , requiring adaptations such as using a walker. [facility] Surgical History (Updated 07/01/23 @ 11:08 by Vannessa Lagos CMA) History of hip replacement Social History (Updated 07/01/23 @ 11:10 by Vannessa Lagos CMA) Household Members: None Alcohol intake: never Patient Tobacco Use Status: Current everyday Tobacco user Physical Exam Vital Signs: Last Vital Signs Pulse 87 05/30/25 12:32 Resp 16 05/30/25 12:32 BP 122/60 05/30/25 12:32 Pulse Ox 96 05/30/25 12:32 Oxygen Delivery Method Room Air 05/30/25 12:32 BMI result Body Mass Index 45.3 Assessment & Plan Assessment & Plan (1) Spinal stenosis, lumbar region with neurogenic claudication: Code(s): M48.062 - Spinal stenosis, lumbar region with neurogenic claudication Category: Medical Plan Plan Patient was informed and verbally consented to the use of an ambient scribe for clinic note documentation during this visit. 1. Lumbar Spinal Stenosis - Discussed minimally invasive lumbar decompression as a potential treatment option, pending insurance authorization. L2/3, L3/4, L4/5. Patient would live to avoid major decompressive surgery. Wants to improve walking capacity. Will seek authorization for MILD at those levels. - Considered cortisone injections as an alternative, though less preferred due to potential weight gain and diminishing effectiveness over time. - Emphasized the importance of weight loss and core strengthening exercises to aid in symptom management. 2. Obesity - Encouraged continued weight loss efforts, with a recent loss of 5 pounds noted. - Advised monitoring dietary intake and increasing physical activity as tolerated. 3. Diabetes Mellitus - Acknowledged as a complicating factor in treatment options for spinal stenosis. Discussion Notes We discussed the diagnosis of lumbar spinal stenosis and the potential treatment options, including minimally invasive lumbar decompression and cortisone injections. I explained the risks and benefits of each procedure, emphasizing the importance of weight management and core strengthening exercises to improve outcomes. The patient was informed about the need for insurance authorization for the decompression procedure and was advised to continue weight loss efforts. Patient Instructions - Continue weight loss efforts by monitoring dietary intake and increasing physical activity as tolerated. - Engage in core strengthening exercises to aid in symptom management. - Await contact from the regional vice president surgical sales for the minimally invasive decompression procedure. Coding Level of Care Code Est Pt Level 4 (31713) Diagnoses Spinal stenosis, lumbar region with neurogenic claudication M48.062
[2025-05-30 12:32] VITALS: BP 122/60; PULSE 87; RESP 16; O2SAT 96; BMI 45.3
== END 2025-05-30 13:34 | disposition home or self-care (01) ==
PROVIDERS: PCP Nurse Practitioner Adult Health; Visit Provider Internal Medicine
DX: M48.062 Spinal stenosis, lumbar region with neurogenic claudication (principal)
CPT/HCPCS: 99214

== ENCOUNTER → 2025-05-30 12:29 | Outpatient (BNVA) | payer MEDICARE, SELFPAY | PROVIDERS: PCP Nurse Practitioner Adult Health; Visit Provider Internal Medicine | DX: M48.062 Spinal stenosis, lumbar region with neurogenic claudication (principal); E66.9 Obesity, unspecified; E11.9 Type 2 diabetes mellitus without complications | CPT/HCPCS: 99212 ==